=== PATIENT | male | born 1980 | race Two or more races ===

== ENCOUNTER 2019-02-24 20:13 | Emergency (ER) | payer BC, OTHER ==
[~2019-02-24] VITALS: Ht 180.3 cm; Wt 90.9 kg
[2019-02-24 20:37] VITALS: BP 154/93
[2019-02-24] MEDS ORDERED: tetanus & diphtheria toxoid (Td) vaccine 0.5ml IMVAC ONE (21:00)
[2019-02-24] MEDS ORDERED: TETanus/Pertussis (Acell)/Diphther VAC/PF (Tdap-Adult) 0.5ml syringe IMVAC ONE (21:05)
[2019-02-24] MEDS ORDERED: HYDROcodone/acetaminophen 5mg/325mg tablet PO ONE (21:15)
[2019-02-24] MEDS ORDERED: amox tr/potassium clavulanate 875/125mg TAB PO ONE (21:15)
[2019-02-24] MEDS ORDERED: LIDOcaine 1% W/epiNEPHrine 1:200,000 10ml vial IJ ONE (21:15)
[2019-02-24] MEDS ORDERED: naproxen 500mg tablet PO ONE (21:15)
[2019-02-24] MEDS ORDERED: AMOX-422 PO (23:08)
== END 2019-02-24 23:22 | disposition home or self-care (01) ==
LOC: ER 20:14
DX: S50.01XA Contusion of right elbow, initial encounter (principal); Z88.5 Allergy status to narcotic agent; Z79.899 Other long term (current) drug therapy; W54.0XXA Bitten by dog, initial encounter; Y93.89 Activity, other specified; Y92.89 Other specified places as the place of occurrence of the external cause; Y99.8 Other external cause status
CPT/HCPCS: 73200; 90471; 90715; 96374; 99284

== ENCOUNTER 2022-10-15 13:24 | Outpatient (CLI) | payer OTHER | END 2022-10-15 23:59 | disposition home or self-care (01) | LOC: RAD 13:24 | PROVIDERS: ATTEND Chiropractor | DX: S33.5XXA Sprain of ligaments of lumbar spine, initial encounter (principal); M54.2 Cervicalgia; R20.2 Paresthesia of skin; X58.XXXA Exposure to other specified factors, initial encounter; Y93.89 Activity, other specified; Y92.89 Other specified places as the place of occurrence of the external cause; Y99.8 Other external cause status | CPT/HCPCS: 70547; 70551; 72100 ==